=== PATIENT | female | born 1950 | race Caucasian/White ===

== ENCOUNTER 2023-12-11 11:42 | Observation (INO) ==
[2023-12-11] MEDS: LACTATED RINGERS SEPSIS IV ONE (12:24)
[2023-12-11 12:38] LABS: Hematocrit 37.2 % (35-45); Hemoglobin 12.5 g/dL (11.5-14.3); Mean Corpuscular Hemoglobin 31.8 pg (27-33); Mean Corpuscular Hgb Conc 33.7 g/dL (31-36); Mean Corpuscular Volume 94.3 fL (80-97); Mean Platelet Volume 7.7 fL (7.5-11.2); Platelet Count 329 10^3/uL (150-450); Red Blood Count 3.94 10^6/uL (3.63-4.92); White Blood Count 22.7 10^3/uL (3.8-11.8)
[2023-12-11] MEDS ORDERED: Lorazepam PYXIS KEY PRN (12:47)
[2023-12-11 12:52] LABS: ABS Basophils 0.1 10^3/uL (0.0-0.1); ABS Lymphocytes 0.3 10^3/uL (1.0-4.8); ABS Monocytes 1.9 10^3/uL (0.0-0.9); ABS Neutrophils 20.4 10^3/uL (1.5-7.6); Lymphocyte % 1.1 %
[2023-12-11] MEDS ORDERED: LORazepam 2 MG/ML 1 mL Syringe ONE (12:54)
[2023-12-11 12:56] LABS: INR 1.25 (0.83-1.13)
[2023-12-11] MEDS: LORazepam 2 MG/ML 1 mL Syringe IV ONE (12:58)
[2023-12-11] MEDS: LORazepam 2 mg VIAL 1 ml IV PUSH ONE (12:58)
[2023-12-11] MEDS: Iohexol 350 (CONTRAST) 500 ML MDV IV ONE (13:19)
[2023-12-11 13:22] LABS: Albumin/Globulin Ratio 1.8 (1-3); C Reactive Protein 183.04 mg/L (<8.01); Creatinine, Serum 0.62 mg/dL (0.51-0.95); Globulin 2.2 g/dL (2-4); Potassium 3.7 mmol/L (3.5-5.0); Total Protein 6.2 g/dL (6.4-8.9)
[2023-12-11 13:35] LABS: Magnesium 1.8 mg/dL (1.9-2.7)
[2023-12-11] MEDS: Cefepime 2 GM in Dextrose 2 GM/50 ML BAG IV ONE (13:36)
[2023-12-11] MEDS: Vancomycin 1,000 MG in NS 0.9% 250 ml 250 ML IVPB ONE (13:38)
[2023-12-11 14:38] LABS: High Sensitivity Troponin 1 Hr 9 pg/mL (<15)
[2023-12-11 14:58] LABS: Urine Appearance Clear; Urine Bilirubin Negative (Negative); Urine Blood Negative (Negative); Urine Color Light-Yellow; Urine Glucose Negative (Negative); Urine Ketones 1+ (Negative); Urine Nitrite Negative (Negative); Urine Protein Negative (Negative); Urine Urobilinogen Negative (Negative)
[2023-12-11] MEDS: Magnesium Sulfate 2 gm BAG 2 GM/50 ML BAG IVPB ONE (15:19)
[2023-12-11] MEDS ORDERED: Vancomycin per Pharmacy 1 EA NOTE FOLLOW UP SCH (19:00)
[2023-12-11] MEDS: Enoxaparin 40 MG/0.4 ML SYR SUBCUT SCH (22:23)
[2023-12-11] MEDS: Cefepime 2 GM in Dextrose 2 GM/50 ML BAG IV SCH (22:27)
[2023-12-12] MEDS: Vancomycin 1000 MG in NS 0.9% 250 ML IVPB SCH (00:27)
[2023-12-12 06:51] LABS: ABS Lymphocytes 0.4 10^3/uL (1.0-4.8); ABS Monocytes 1.5 10^3/uL (0.0-0.9); ABS Neutrophils 13.3 10^3/uL (1.5-7.6); Eosinophil % 0.3 %; Hematocrit 31.1 % (35-45); Hemoglobin 10.7 g/dL (11.5-14.3); Lymphocyte % 2.4 %; Mean Corpuscular Hemoglobin 32.1 pg (27-33); Mean Corpuscular Hgb Conc 34.3 g/dL (31-36); Mean Corpuscular Volume 93.5 fL (80-97); Platelet Count 278 10^3/uL (150-450); Red Blood Count 3.33 10^6/uL (3.63-4.92); White Blood Count 15.2 10^3/uL (3.8-11.8)
[2023-12-12 07:04] LABS: C Reactive Protein 187.61 mg/L (<8.01); Creatinine, Serum 0.53 mg/dL (0.51-0.95); Potassium 3.6 mmol/L (3.5-5.0); eGFR CKD-EPI 97.6 (>60)
[2023-12-12] MEDS: Potassium Chlor 20 meq TAB.ER PO ONE (09:05)
[2023-12-12] MEDS: Pneumococcal 20-Valent Conj 0.5 ML SYR Vaccine IM ONE (09:05)
[2023-12-12] MEDS: cefTRIAXone 1 gm/50 mL D5W 1 GM/50 ML BAG IV SCH (10:23)
[2023-12-12] MEDS: Azithromycin 500 mg/250 ml NS 500 MG/250 ML BAG IVPB SCH (11:02)
[2023-12-13 06:06] LABS: ABS Basophils 0.1 10^3/uL (0.0-0.1); ABS Eosinophils 0.2 10^3/uL (0.0-0.5); ABS Lymphocytes 0.5 10^3/uL (1.0-4.8); ABS Monocytes 1.4 10^3/uL (0.0-0.9); ABS Neutrophils 7.4 10^3/uL (1.5-7.6); ABS Nucleated RBC 0.02 10^3/ul; Eosinophil % 1.6 %; Hematocrit 31.5 % (35-45); Hemoglobin 11.1 g/dL (11.5-14.3); Lymphocyte % 4.8 %; Mean Corpuscular Hemoglobin 32.8 pg (27-33); Mean Corpuscular Hgb Conc 35.1 g/dL (31-36); Mean Corpuscular Volume 93.6 fL (80-97); Mean Platelet Volume 7.9 fL (7.5-11.2); Nucleated Red Blood Cells % 0.2 %/100WBC (0.0-0.8); Platelet Count 299 10^3/uL (150-450); Red Blood Count 3.37 10^6/uL (3.63-4.92); White Blood Count 9.6 10^3/uL (3.8-11.8)
[2023-12-13 06:28] LABS: Calcium 8.2 mg/dL (8.6-10.3); Creatinine, Serum 0.52 mg/dL (0.51-0.95)
[2023-12-13] MEDS ORDERED: Vancomycin Trough Check NOTE FOLLOW UP ONE (12:30)
[2023-12-13 13:20] VITALS: BP 139/75
== END 2023-12-13 16:45 | disposition home or self-care (01) ==
LOC: ED 11:42 → EDHOLD 11:42 → SUATTDRO 18:22 → MED 20:15
PROVIDERS: ADMIT Hospitalist; ATTEND Hospitalist